=== PATIENT | male | born 1955 | race Caucasian/White ===

== ENCOUNTER → 2019-07-11 | Outpatient (CLI) | payer BC ==
--- NOTE | 2019-07-11 15:32 | PCVCIMAG ---
APPROVED REPORT Indications Bruit Risk Factors Hypertension: Elevated calcium score >400 Doppler Spectral Velocity Analysis PSV / EDVPSV / EDV ECA (R) 115 / 20 cm/sECA (L) 108 / 17 cm/s dICA (R) 54 / 22 cm/sdICA (L) 46 / 15 cm/s Brayan (R) 58 / 17 cm/smICA (L) 71 / 22 cm/s pICA (R) 137 / 34 cm/spICA (L) 52 / 17 cm/s Bulb (R) 71 / 16 cm/sBulb (L) 80 / 19 cm/s dCCA (R) 81 / 18 cm/sdCCA (L) 85 / 21 cm/s mCCA (R) 91 / 21 cm/smCCA (L) 100 / 21 cm/s Vert (R) 44 / 11 cm/sVert (L) 48 / 14 cm/s ICA/CCA 1.69ICA/CCA 0.84 Basic Measurements Blood Pressure: Pulses: Right Left RightLeft Brachial(Sitting) 164/204efKq655/104mmHgTemporal Real Time B-Mode Imaging Vert. (R)AntegradeVert. (L)Antegrade Findings The right carotid bulb has moderate calcified plaque. The right proximal internal carotid artery shows 40-50% stenosis. The right common carotid artery shows no significant stenosis. The right external carotid artery shows no significant stenosis. The left carotid bulb has mild plaque. The left proximal internal carotid artery shows <40% stenosis. The left common carotid artery shows no significant stenosis. The left external carotid artery shows no significant stenosis. Conclusion 1. Right internal carotid artery stenosis (40-50%). 2. Left internal carotid artery stenosis (<40%). 3. Antegrade vertebral flow.
--- NOTE | 2019-07-11 17:15 | PCVCIMAG ---
APPROVED REPORT Study performed: 07/11/2019 16:25:46 Exam: Stress Echocardiogram Indication: Hyperlipidemia, Hypertension Patient Location: Echo lab Stress Nurse: Evelyn Cabrera RN Status: routine Ht: 5 ft 7 in HR: 68 bpm BP: 140/80 mmHg Rhythm: NSR Medical History Medical History: Elevated calcium score Procedure The patient underwent an Exercise Stress Test using the Reyes Protocol. Blood pressure, heart rate, and EKG were monitored. An Echocardiogram was performed by broadcast maintenance technician in four stages in quad fashion. At peak stress, four selected images were obtained and placed side by side with resting images for comparison. Stress Test Details Stress Test: Exercise stress testing was performed using a Reyes protocol. HR Resting HR: 68 bpmMax Heart Rate (APMHR): 155 bpm Max HR Achieved: 155 bpmTarget HR (85% APMHR): 131 bpm % of APMHR: 100 Recovery HR: 77 bpm HR response to stress: Normal HR response to stress BP Resting BP: 140/80 mmHg Max BP: 180/90 mmHg Recovery BP: 142/82 mmHg BP response to stress: Normal blood pressure response to stress. ECG Resting ECG: Sinus Rhythm Stress ECG: Sinus Rhythm ST Change: Normal Maximum ST Deviation: 0 mm Arrhythmia: VPC's Recovery ECG: Sinus Rhythm Recovery ST Change: Normal Recovery ST Deviation: 0 mm Recovery Arrhythmia: None Clinical Reason for Termination: Maximal effort Exercise duration: 11 min 01 sec Highest Stage Achieved: Stage 4: 4.2 mph at 16% grade. Exercise capacity: 13.40 METs Overall Exercise Capacity for Age: Good Angina Score: None Stress ECG Conclusion Clinical: Non-ischemic ECG: Non-ischemic Cristina Treadmill Score is 11.0 which is Low risk. Pre-Stress Echo The resting Echocardiogram showed normal left ventricular contractility with an estimated Ejection Fraction of about 55-60%. Normal wall motion in all segments on baseline images. Post-Stress Echo The stress Echocardiogram showed normal left ventricular contractility with an estimated Ejection Fraction of about 60-65%. Normal augmentation of wall motion in all segments on post stress images. Clinical No clinical or ECG evidence for ischemia. Conclusion Clinical Response: Non-ischemic Exercise Capacity: Superior Stress ECG Response: Non-ischemic Stress Echo Images: Non-ischemic The left ventricle is normal in size and wall thickness in both the rest and stress images. Normal stress echocardiogram with maximal exercise stress. Other Information Study Quality: Good <Conclusion> The left ventricle is normal in size and wall thickness in both the rest and stress images. Normal stress echocardiogram with maximal exercise stress.
== END | disposition home or self-care (01) ==
LOC: PCVCIMAG 14:19
PROVIDERS: ATTEND Internal Medicine
DX: I65.23 Occlusion and stenosis of bilateral carotid arteries (principal); E78.5 Hyperlipidemia, unspecified; I10 Essential (primary) hypertension; E78.00 Pure hypercholesterolemia, unspecified; R97.20 Elevated prostate specific antigen [PSA]
CPT/HCPCS: 93325; 93351; 93880